=== PATIENT | male | born 1995 | race Caucasian/White ===

== ENCOUNTER 2018-12-07 21:35 | Emergency (ER) | payer BC, OTHER ==
[~2018-12-07] VITALS: Ht 188 cm; Wt 81.7 kg
[~2018-12-07 21:35] MED LIST: AMOXICILLIN 50500 MG; AMOXICILLIN500 M1 PO; AZITHROMYC200 MG/51 PO; IBUPROFEN 200200 M1; MAGIC MOUTH WASH; MOBIC7.5 MG PO; PRELONE15 MG/5 ML PO; TUSSIONEX PENN473 ML PO
[2018-12-07 21:41] VITALS: BP 145/69
== END 2018-12-07 22:06 | disposition home or self-care (01) ==
LOC: M.ERS 21:35
DX: S61.211A Laceration without foreign body of left index finger without damage to nail, initial encounter (principal); F17.210 Nicotine dependence, cigarettes, uncomplicated; W27.8XXA Contact with other nonpowered hand tool, initial encounter; Y92.89 Other specified places as the place of occurrence of the external cause; Y93.89 Activity, other specified; Y99.8 Other external cause status